=== PATIENT | male | born 1980 | race Caucasian/White ===

== ENCOUNTER 2021-03-12 21:27 | Emergency (ER) | payer OTHER ==
[~2021-03-12] VITALS: Ht 177.8 cm; Wt 75.0 kg
--- NOTE | 2021-03-12 21:46 | PHYS DOC ---
General Adult EDM: Chief Complaint: CHEST PAIN HPI: HPI: ".. I am hurting really bad in my chest ..epigastric.. it may not be my chest .. but my gall bladder.. ".. "that was what it was last time.." Patient is a 40 year old male who presents with above hx and complaints of chest pain and epigastric pain. Patient states he had similar presentation with his previous visit diagnosed as biliary colic from gallbladder. Patient denies any previous cardiac problems. Patient states symptoms started approximate hour to arrival. Patient does give history of eating spicy food and tacos prior to the onset of his chest epigastric pain. Patient does have a history of previous GERD. Patient does smoke. Patient does admit to cocaine use. Patient diagnosed with biliary colic. No family history of gallbladder disease. Review of Systems: Review of Systems: Constitutional: Denies fever or chills Eyes: Denies change in visual acuity HENT: Denies nasal congestion or sore throat Respiratory: Denies cough or shortness of breath Cardiovascular: Complains of chest pain GI: Complains of abdominal pain, nausea. Denies, vomiting, bloody stools or diarrhea : Denies dysuria Musculoskeletal: Denies back pain or joint pain Integument: Denies rash Neurologic: Denies headache, focal weakness or sensory changes Endocrine: Denies polyuria or polydipsia Lymphatic: Denies swollen glands Psychiatric: Denies depression or anxiety Family History: Family History: Noncontributory to presentation. Current Medications: Current Meds: See nursing for home meds Allergies: Allergies: No known drug allergies Physical Exam: PE: Constitutional: IN acute distress, non-toxic appearance. [] HENT: Normocephalic, atraumatic, bilateral external ears normal, oropharynx moist, no oral exudates, nose injected turbinates. Eyes: PERRLA, EOMI, conjunctiva normal, no discharge. [] Neck: Normal range of motion, no tenderness, supple, no stridor. [] Cardiovascular:Heart rate regular rhythm, no murmur [] Lungs & Thorax: Bilateral breath sounds equal apex with scattered wheezes on auscultation [] Abdomen: Bowel sounds normal, soft, epigastric tenderness, no masses, no pulsatile masses. [] Rebound to epigastric. Refused rectal exam at this time. Skin: Warm, dry, no erythema, no rash. [] Back: No tenderness, no CVA tenderness. [] Extremities: No tenderness, no cyanosis, no clubbing, ROM intact, no edema. No cording appreciated Neurologic: Alert and oriented X 3, normal motor function, normal sensory function, no focal deficits noted. [] Psychologic: Affect anxious, judgement normal, mood normal. [] EKG: EKG: My interpretation of EKG shows a sinus rhythm at 73 bpm. No acute morphology. Time of EKG is 2139 hrs. [] Patient refused EKG #2 Radiology/Procedures: Radiology/Procedures: [address] [address] IMAGING REPORT Signed PATIENT: PITA KIRKUNT: [id number] : 1980 LOCATION: ER AGE: 40 SEX: M EXAM STATUS: PRE ER ORD. PHYSICIAN: NAVI HANKINS MD REASON: pain PROCEDURE: ACUTE ABDOMEN SERIES Abdominal Series dated 03/12/2021. No comparison available. Clinical Indication: Abdominal pain. Findings: Single upright PA view the chest shows normal heart and mediastinal contours. The lungs are clear without focal consolidation. Vascular interstitium is within normal limits. Flat and upright views of the abdomen show nondilated gas filled loops of bowel. No air-fluid level on the upright view. Small amount stool in the right colon with mild gaseous distention of the transverse colon and descending colon. No abnormal calcifications are identified. There is no evidence of pneumoperitoneum. Impression chest: No acute radiographic abnormality. Impression abdomen: Non-obstructive bowel gas pattern. Electronically signed by: Prince Abdalla MD (03/13/2021 12:18 AM) [facility] DICTATED AND SIGNED BY: PRINCE ABDALLA MD DATE: 03/13/21 0017 CC: NAVI HANKINS MD; NON,STAFF ~MTH0 [address] [address] IMAGING REPORT Signed PATIENT: PITA KIRKCOUNT: [id number] : 1980 LOCATION: ER AGE: 40 SEX: M EXAM STATUS: REG ER ORD. PHYSICIAN: NAVI HANKINS MD REASON: OMNI 240,30ML PO.OMNI 300,75ML IV.Pain, possible gall stone PROCEDURE: CT ABD PELV W/ORAL&IV CONTRAST CT abdomen pelvis with contrast dated 04/13/2021. No comparison available. Clinical data indication: Pain. TECHNIQUE: Contiguous axial imaging the abdomen pelvis performed after the administration of 75 cc Omnipaque 300. One or more of the following individualized dose reduction techniques were utilized for this examination: 1. Automated exposure control 2. Adjustment of the mA and/or kV according to patient size 3. Use of iterative reconstruction technique FINDINGS: Limited images of lung bases are clear. Heart size within normal limits. No pleural or pericardial effusion. Liver, spleen, pancreas, adrenal glands, gallbladder and kidneys are unremarkable. No hydronephrosis. Partially opacified GI tract normal in caliber and contour. No focal bowel wall thickening. The appendix is normal in caliber. No ascites or lymphadenopathy. Images of pelvis show mildly distended urinary bladder. Prostate gland is normal in size. No free pelvic fluid or pelvic lymphadenopathy. Abdominal aorta is normal in caliber. Bone windows show no acute findings. IMPRESSION: 1. No acute abnormality of abdomen or pelvis. Normal appendix. Electronically signed by: Prince Abdalla MD (03/13/2021 12:47 AM) [facility] DICTATED AND SIGNED BY: PRINCE ABDALLA MD DATE: 03/13/21 0045 CC: NAVI HANKINS MD; NON,STAFF ~MTH0 0 [][facility] IMAGING REPORT Heart Score: C/O Chest Pain: Yes HEART Score for Chest Pain: HEART Score for Chest Pain Response (Comments) Value History Slighlty/Non-Suspicious 0 ECG Normal 0 Age < 45 0 Risk Factors 1 or 2 Risk Factors 1 Troponin < Normal Limit 0 Total 1 Risk Factors: Risk Factors: DM, Current or recent (<one month) smoker, HTN, HLP, family history of CAD, obesity. Risk Scores: Score 0 - 3: 2.5% MACE over next 6 weeks - Discharge Home Score 4 - 6: 20.3% MACE over next 6 weeks - Admit for Clinical Observation Score 7 - 10: 72.7% MACE over next 6 weeks - Early Invasive Strategies Course & Med Decision Making: Course & Med Decision Making Pertinent Labs and Imaging studies reviewed. (See chart for details) After antiacids and milk of mag patient's pain gradually resolved. Patient then demanded discharge home. Refused admission. Exhibit UC[facility] capacity. Begged pt. to reconsider his decision to leave AMA. Advised he could return at any time to complete his evaluation. Pt. refused follow up EKG and Trop. prior to leaving AMA. Impression: 1. Chest Pain 2. Abdomen Pain 3. Polysubstance abuse ( Tobacco, Marijuana and Cocaine) [] Dragon Disclaimer: Hanny Disclaimer: This electronic medical record was generated, in whole or in part, using a voice recognition dictation system. Departure Departure: Referrals: NON,STAFF (PCP) Hanny Disclaimer This chart was dictated in whole or in part using Voice Recognition software in a busy, high-work load, and often noisy Emergency Department environment. It may contain unintended and wholly unrecognized errors or omissions. NAVI HANKINS MD Mar 12, 2021 21:46
[2021-03-12] MEDS: ONDANSETRON PF 4 MG/2 ML VIAL. IVP ONE (22:16)
[2021-03-12] MEDS: KETOROLAC 30 MG/ML VIAL. IVP ONE (22:17)
[2021-03-12] MEDS: MORPHINE SULFATE 10 MG/ML SYRINGE. SQ ONE (22:18)
[2021-03-12] MEDS: FAMOTIDINE 20 MG/2 ML VIAL IVP ONE (22:21)
[2021-03-12] MEDS: MAGNESIUM HYDROXIDE 2,400 MG/30 ML ORAL.SUSP. PO ONE (22:21)
[2021-03-12 22:22] LABS: BASO # 0.1 x10^3/uL (0.0-0.2); BASO % 1 % (0-3); EOS # 0.1 x10^3/uL (0.0-0.7); EOS % 1 % (0-3); HEMATOCRIT 49.3 % (39.0-53.0); HEMOGLOBIN 16.8 g/dL (13.0-17.5); LYMPH # 1.7 x10^3/uL (1.0-4.8); LYMPH % 20 % (24-48); MEAN CORPUSCULAR HEMOGLOBIN 32 pg (25-35); MEAN CORPUSCULAR HGB CONC 34 g/dL (31-37); MEAN CORPUSCULAR VOLUME 93 fL (79-100); MONO # 0.5 x10^3/uL (0.0-1.1); MONO % 6 % (0-9); NEUT # 6.1 x10^3uL (1.8-7.7); NEUT % 73 % (31-73); PLATELET COUNT 156 x10^3/uL (140-400); RED BLOOD COUNT 5.31 x10^6/uL (4.30-5.70); RED CELL DISTRIBUTION WIDTH 13.9 % (11.5-14.5); WHITE BLOOD COUNT 8.4 x10^3/uL (4.0-11.0)
[2021-03-12 22:30] LABS: CALCIUM 8.7 mg/dL (8.5-10.1); CREATININE 0.9 mg/dL (0.7-1.3); GFR 93.5; POTASSIUM 3.6 mmol/L (3.5-5.1)
[2021-03-12 22:37] LABS: ALBUMIN 3.6 g/dL (3.4-5.0); DIRECT BILIRUBIN 0.1 mg/dL (0.0-0.2); TOTAL BILIRUBIN 0.3 mg/dL (0.2-1.0)
[2021-03-12 22:54] VITALS: BP 147/106
[2021-03-12] MEDS: IV RINGERS SOLUTION,LACTATED 1,000 ML IV SCH (23:00)
[2021-03-12] MEDS ORDERED: IOHEXOL 240 MG/ML 50ML VIAL. ONE (23:08)
[2021-03-12] MEDS ORDERED: CONTRAST GIVEN. MC PRN (23:15)
[2021-03-13 00:14] LABS: AMPHETAMINE/METHAMPHETAMINE NEG (NEG); BARBITURATES NEG (NEG); BENZODIAZEPINES NEG (NEG); CANNABINOIDS POS (NEG); COCAINE POS (NEG); METHADONE NEG (NEG); OPIATES POS (NEG); PHENCYCLIDINE NEG (NEG)
[2021-03-13] MEDS: IOHEXOL 300 MG/ML 75 ML VIAL. IV ONE (00:14)
--- NOTE | 2021-03-13 00:20 | RAD ---
Abdominal Series dated 03/12/2021. No comparison available. Clinical Indication: Abdominal pain. Findings: Single upright PA view the chest shows normal heart and mediastinal contours. The lungs are clear wit hout focal consolidation. Vascular interstitium is within normal limits. Flat and upright views of the abdomen show nondilated gas filled loops of bowel. No air-fluid level o n the upright view. Small amount stool in the right colon with mild gaseous distention of the transve rse colon and descending colon. No abnormal calcifications are identified. There is no evidence of pn eumoperitoneum. Impression chest: No acute radiographic abnormality. Impression abdomen: Non-obstructive bowel gas pattern. Electronically signed by: Prince Abdalla MD (03/13/2021 12:18 AM) [facility]
--- NOTE | 2021-03-13 00:49 | RAD ---
CT abdomen pelvis with contrast dated 04/13/2021. No comparison available. Clinical data indication: Pain. TECHNIQUE: Contiguous axial imaging the abdomen pelvis performed after the administration of 75 cc Omnipaque 300 . One or more of the following individualized dose reduction techniques were utilized for this examinat ion: 1. Automated exposure control 2. Adjustment of the mA and/or kV according to patient size 3. Use of iterative reconstruction technique FINDINGS: Limited images of lung bases are clear. Heart size within normal limits. No pleural or pericardial ef fusion. Liver, spleen, pancreas, adrenal glands, gallbladder and kidneys are unremarkable. No hydronephrosis. Partially opacified GI tract normal in caliber and contour. No focal bowel wall thickening. The appen dimple is normal in caliber. No ascites or lymphadenopathy. Images of pelvis show mildly distended urinary bladder. Prostate gland is normal in size. No free pel anette fluid or pelvic lymphadenopathy. Abdominal aorta is normal in caliber. Bone windows show no acute findings. IMPRESSION: 1. No acute abnormality of abdomen or pelvis. Normal appendix. Electronically signed by: Prince Abdalla MD (03/13/2021 12:47 AM) [facility]
[2021-03-13 01:22] LABS: BACTERIA,URINE 0 /HPF (0-FEW); BILIRUBIN,URINE NEG (NEG); CLARITY,URINE CLEAR; COLOR,URINE YELLOW; GLUCOSE,URINE NEG (NEG); NITRITE,URINE NEG (NEG); RBC,URINE 0 /HPF (0-2); UROBILINOGEN,URINE 0.2 mg/dL (0.2 mg/dL); WBC,URINE 0 /HPF (0-4)
--- NOTE | 2021-03-13 04:26 | EKG ---
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
== END 2021-03-13 02:00 | disposition left against medical advice (07) ==
LOC: ER 21:27
DX: R07.89 Other chest pain (principal); R10.13 Epigastric pain; F12.10 Cannabis abuse, uncomplicated; F14.10 Cocaine abuse, uncomplicated
CPT/HCPCS: 36415; 74022; 74177; 80048; 80076; 80307; 81001; 82150; 82550; 83690; 84484; 85025; 85610; 85730; 93005; 96361; 96372; 96374; 96375; 99285; J1885; J2270; J2405; J3490; J7120; Q9967

== ENCOUNTER 2021-03-21 19:21 | Inpatient (IN) | payer OTHER ==
[~2021-03-21] VITALS: Ht 180.3 cm; Wt 74.7 kg
--- NOTE | 2021-03-21 19:30 | PHYS DOC ---
Past History Past Medical History: GERD Past Medical History Hx. of biliary colic Past Surgical History: Other Smoking: Cigarettes Alcohol Use: None General Adult EDM: Chief Complaint: ABDOMINAL PAIN HPI: HPI: "..I hurting really bad in my gut..my whole abdomen hurts... It seems centered here..( pt. points to Rt upper and epigastric area).."..." I ve had some reflux stuff in the past... And when I had this pain before they told me I had gallbladder problems..but tonight it is really killing me...".." I was here before.. earlier this month..I thought it was chest pain.. it got better and I never completed the work up in the ED.. I left against medical advice.." Patient is a 40 year old male who presents with above hx and complaints of generalized abdomen pain. Patient does localize pain to epigastric and right upper quadrant. Patient states the pain is 10 out of 10 and radiates to his back,. There is some radiation to mid sternal area. . Patient denies any intake of bad food. Patient reports he has had previous evaluations in the emergency departments for this pain. The last eval was 03/12/21,but left AMA. Has been evaluated other emergency departments and told it was biliary colic.. Patient denies any history of cardiac problems. Patient gives history of previous exacerbation with eating spicy food, tacos, and high-fat foods. Patient had had a history of intermittent episodes of GERD in the past. Patient denies history of pancreatitis. Patient does smoke tobacco. Patient does admit to recreational marijuana and cocaine use. There is no family history of gallbladder disease. Patient denies any trauma. Patient denies any alcohol use. Patient denies any tarry stools. Patient denies any recent trauma or specific ill contacts. No recent travel outside the [place] area. No history of immunosuppression. Pt.follows with Dr. Nnamdi Vu at [facility]. Review of Systems: Review of Systems: Constitutional: Denies fever or chills Eyes: Denies change in visual acuity HENT: Denies nasal congestion or sore throat Respiratory: Denies cough or shortness of breath Cardiovascular: Denies chest pain or edema GI: Denies abdominal pain, nausea, vomiting, bloody stools or diarrhea : Denies dysuria Musculoskeletal: Denies back pain or joint pain Integument: Denies rash Neurologic: Denies headache, focal weakness or sensory changes Endocrine: Denies polyuria or polydipsia Lymphatic: Denies swollen glands Psychiatric: Denies depression or anxiety Family History: Family History: Noncontributory to presentation. No history of gallbladder disease or stones Current Medications: Current Meds: See nursing for home meds Allergies: Allergies: Allergies Coded Allergies Type Severity Reaction Last Updated Verified No Known Drug Allergies 03/12/21 No Physical Exam: PE: Constitutional: Well developed, well nourished, in acute distress, non-toxic appearance. [] HENT: Normocephalic, atraumatic, bilateral external ears normal, oropharynx moist, no oral exudates, nose normal. [] Eyes: PERRLA, EOMI, conjunctiva normal, no discharge. [] Neck: Normal range of motion, no tenderness, supple, no stridor. [] Cardiovascular: Tachycardia heart rate regular rhythm, no murmur []. Patient's bedside monitor shows a sinus tachycardia. No obvious PVCs or STEMI. Lungs & Thorax: Bilateral breath sounds equal apex with scattered wheezes on auscultation [] Abdomen: Bowel sounds decreased, soft, marked epigastric tenderness, no masses, no pulsatile masses. Rebound to epigastric and right upper quadrant. Skin: Warm, diaphoretic, no erythema, no rash. [] Back: No tenderness, no CVA tenderness. [] Extremities: No tenderness, no cyanosis, no clubbing, ROM intact, no edema. No true psoas sign. No cording appreciated. Neurologic: Alert and oriented X 3, moves all extremities on request, does have distal sensory,, no focal deficits noted. [] Psychologic: Affect very anxious, judgement normal, mood normal. [] EKG: EKG: My interpretation of EKG shows a sinus rhythm at 94 bpm. No acute morphology time of this EKG is 2008 hrs. [] Radiology/Procedures: Radiology/Procedures: [[address] [address] IMAGING REPORT Signed PATIENT: PITA KIRK JACCOUNT: [id number] : 1980 LOCATION: ER AGE: 40 SEX: M EXAM STATUS: REG ER ORD. PHYSICIAN: NAVI HANKINS MD REASON: pain PROCEDURE: ACUTE ABDOMEN SERIES EXAM: Frontal view of the chest, AP views of the abdomen in upright and supine positions. CLINICAL INDICATION: Reason: pain / Spl. Instructions: / History: COMPARISON: 03/12/2021 FINDINGS and IMPRESSION: The heart is not enlarged. Mediastinal and hilar contours are normal. Linear patchy bibasilar opacities, new compared to 03/12/2021, possibly atelectasis or early/developing consolidative process. No pleural effusion or pneumothorax. No abnormal small or large bowel dilatation. Moderate colonic stool content. No abnormal soft tissue mass effect. No suspicious calcifications are seen. No free intraperitoneal gas. Electronically signed by: Miguel Donato MD (03/21/2021 8:39 PM) [facility] DICTATED AND SIGNED BY: MIGUEL DONATO MD DATE: 03/21/212037 CC: NAVI HANKINS MD; PCP,UNKNOWN ~MTH0 0 ] IMAGING REPORT Signed PATIENT: PITA KIRK JACCOUNT: [id number] : 1980 LOCATION: ER AGE: 40 SEX: M EXAM STATUS: REG ER ORD. PHYSICIAN: NAVI HANKINS MD REASON: pain, OMNI 300, 75ml & OMNI 240, 30ml PROCEDURE: CT ABD PELV W/ORAL&IV CONTRAST Exam: CT of abdomen and pelvis with contrast INDICATION: Pain TECHNIQUE: Sequential axial images through the abdomen and pelvis obtained following the administration of 75 mL of Omni 300 IV contrast. Sagittal and coronal reformatted images were reconstructed from the axial data and reviewed. Exposure: One or more of the following in the visualized dose reduction techniques were utilized for this examination: 1. Automated exposure control 2. Adjustment of the MA and/or KV according to patient size 3. Use of iterative of reconstructive technique Comparisons: 03/12/2021 FINDINGS: Heart size is normal. No pericardial effusion. Strandy opacities at dependent portion lungs likely representing atelectasis. No pleural effusion. Liver, spleen, gallbladder and adrenals are unremarkable. There is inflammatory changes surrounding the pancreatic head extending into the mesentery. No peripancreatic fluid collection. Kidneys demonstrate symmetric enhancement. No perinephric inflammation or hydronephrosis. No renal or ureteral calculi are identified. Bladder is partially distended and appears thin-walled. Prostate is not enlarged. Large and small bowel are unremarkable. Appendix is normal. No free intra- abdominal air or fluid. No obstruction. Abdominal aorta has a normal course and caliber. Abdominal vasculature is patent. No enlarged intra-abdominal lymph nodes are identified. No suspicious osseous lesions or acute fractures. IMPRESSION: Inflammatory changes surrounding the pancreatic head and involving the duodenum. Findings are favored represent pancreatitis. Correlate with lipase. Enteritis involving the duodenum is also possible. Electronically signed by: Manuel Gupta MD (03/21/2021 10:07 PM) [facility] DICTATED AND SIGNED BY: MANUEL GUPTA MD DATE: 03/21/212202 CC: NAVI HANKINS MD; PCP,UNKNOWN ~MTH0 0 Heart Score: C/O Chest Pain: Yes HEART Score for Chest Pain: HEART Score for Chest Pain Response (Comments) Value History Slighlty/Non-Suspicious 0 ECG Normal 0 Age < 45 0 Risk Factors 1 or 2 Risk Factors 1 Troponin < Normal Limit 0 Total 1 Risk Factors: Risk Factors: DM, Current or recent (<one month) smoker, HTN, HLP, family history of CAD, obesity. Risk Scores: Score 0 - 3: 2.5% MACE over next 6 weeks - Discharge Home Score 4 - 6: 20.3% MACE over next 6 weeks - Admit for Clinical Observation Score 7 - 10: 72.7% MACE over next 6 weeks - Early Invasive Strategies Course & Med Decision Making: Course & Med Decision Making Pertinent Labs and Imaging studies reviewed. (See chart for details) Discussed presentation, testing and tx. plan with Dr. Mcnally- advised to admit to Tele- NPO status, continue IV hydration and pain meds. No US at this time. Impression: 1. Acute pancreatitis 2. Elevated Lipase 7,757 3. UDS- + Cocaine 4. Mild Hypokalemia 3.4 5. Dehydration 6. Tobacco use 7. Hypertension [] Dragon Disclaimer: Dragon Disclaimer: This electronic medical record was generated, in whole or in part, using a voice recognition dictation system. Departure Departure: Referrals: PCP,UNKNOWN (PCP) Dragon Disclaimer This chart was dictated in whole or in part using Voice Recognition software in a busy, high-work load, and often noisy Emergency Department environment. It may contain unintended and wholly unrecognized errors or omissions. Dragon Disclaimer This chart was dictated in whole or in part using Voice Recognition software in a busy, high-work load, and often noisy Emergency Department environment. It may contain unintended and wholly unrecognized errors or omissions. NAVI HANKINS MD Mar 21, 2021 19:30
[2021-03-21] MEDS ORDERED: IOHEXOL 240 MG/ML 50ML VIAL. PO ONE (19:45)
[2021-03-21] MEDS ORDERED: IOHEXOL 300 MG/ML 75 ML VIAL. IV ONE (19:45)
[2021-03-21] MEDS ORDERED: IV RINGERS SOLUTION,LACTATED 1,000 ML IV SCH (19:45)
[2021-03-21] MEDS ORDERED: CONTRAST GIVEN. MC PRN (20:00)
[2021-03-21] MEDS ORDERED: KETOROLAC 30 MG/ML VIAL. IVP ONE (20:15)
[2021-03-21] MEDS ORDERED: ONDANSETRON PF 4 MG/2 ML VIAL. IVP ONE (20:15)
[2021-03-21] MEDS ORDERED: FAMOTIDINE 20 MG/2 ML VIAL IVP ONE (20:15)
[2021-03-21 20:31] LABS: BASO % 0 % (0-3); EOS % 0 % (0-3); HEMATOCRIT 49.7 % (39.0-53.0); HEMOGLOBIN 16.8 g/dL (13.0-17.5); LYMPH # 0.9 x10^3/uL (1.0-4.8); LYMPH % 9 % (24-48); MEAN CORPUSCULAR HEMOGLOBIN 31 pg (25-35); MEAN CORPUSCULAR HGB CONC 34 g/dL (31-37); MEAN CORPUSCULAR VOLUME 93 fL (79-100); MONO # 0.4 x10^3/uL (0.0-1.1); MONO % 4 % (0-9); NEUT # 8.5 x10^3uL (1.8-7.7); NEUT % 86 % (31-73); PLATELET COUNT 150 x10^3/uL (140-400); RED BLOOD COUNT 5.36 x10^6/uL (4.30-5.70); RED CELL DISTRIBUTION WIDTH 13.7 % (11.5-14.5); WHITE BLOOD COUNT 9.8 x10^3/uL (4.0-11.0)
[2021-03-21 20:37] LABS: CALCIUM 8.5 mg/dL (8.5-10.1); CREATININE 0.8 mg/dL (0.7-1.3); GFR 107.1; POTASSIUM 3.4 mmol/L (3.5-5.1)
--- NOTE | 2021-03-21 20:41 | RAD ---
EXAM: Frontal view of the chest, AP views of the abdomen in upright and supine positions. CLINICAL INDICATION: Reason: pain / Spl. Instructions: / History: COMPARISON: 03/12/2021 FINDINGS and IMPRESSION: The heart is not enlarged. Mediastinal and hilar contours are normal. Linear patchy bibasilar opaciti es, new compared to 03/12/2021, possibly atelectasis or early/developing consolidative process. No ple ural effusion or pneumothorax. No abnormal small or large bowel dilatation. Moderate colonic stool content. No abnormal soft tissu e mass effect. No suspicious calcifications are seen. No free intraperitoneal gas. Electronically signed by: Miguel Ding MD (03/21/2021 8:39 PM) [facility]ANCY
[2021-03-21 20:44] LABS: ALBUMIN 3.6 g/dL (3.4-5.0); DIRECT BILIRUBIN 0.2 mg/dL (0.0-0.2); TOTAL BILIRUBIN 0.6 mg/dL (0.2-1.0); TOTAL PROTEIN 6.7 g/dL (6.4-8.2)
[2021-03-21 20:57] LABS: AMPHETAMINE/METHAMPHETAMINE NEG (NEG); BARBITURATES NEG (NEG); BENZODIAZEPINES NEG (NEG); CANNABINOIDS NEG (NEG); COCAINE POS (NEG); METHADONE NEG (NEG); OPIATES NEG (NEG); PHENCYCLIDINE NEG (NEG)
--- NOTE | 2021-03-21 21:01 | EKG ---
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
[2021-03-21 21:04] LABS: BILIRUBIN,URINE NEG (NEG); CLARITY,URINE CLEAR; COLOR,URINE YELLOW; GLUCOSE,URINE NEG (NEG)
[2021-03-21 21:05] LABS: BACTERIA,URINE 0 /HPF (0-FEW); NITRITE,URINE NEG (NEG); RBC,URINE 0 /HPF (0-2); UROBILINOGEN,URINE 0.2 mg/dL (0.2 mg/dL); WBC,URINE OCC /HPF (0-4)
[2021-03-21] MEDS ORDERED: MORPHINE SULFATE 10 MG/ML SYRINGE. SQ ONE ×2 (21:15→22:45)
--- NOTE | 2021-03-21 22:09 | RAD ---
Exam: CT of abdomen and pelvis with contrast INDICATION: Pain TECHNIQUE: Sequential axial images through the abdomen and pelvis obtained following the administrati on of 75 mL of Omni 300 IV contrast. Sagittal and coronal reformatted images were reconstructed from the axial data and reviewed. Exposure: One or more of the following in the visualized dose reduction techniques were utilized for this examination: 1. Automated exposure control 2. Adjustment of the MA and/or KV according to patient size 3. Use of iterative of reconstructive technique Comparisons: 03/12/2021 FINDINGS: Heart size is normal. No pericardial effusion. Strandy opacities at dependent portion lungs likely re presenting atelectasis. No pleural effusion. Liver, spleen, gallbladder and adrenals are unremarkable. There is inflammatory changes surrounding t he pancreatic head extending into the mesentery. No peripancreatic fluid collection. Kidneys demonstrate symmetric enhancement. No perinephric inflammation or hydronephrosis. No renal or ureteral calculi are identified. Bladder is partially distended and appears thin-walled. Prostate is not enlarged. Large and small bowel are unremarkable. Appendix is normal. No free intra-abdominal air or fluid. No obstruction. Abdominal aorta has a normal course and caliber. Abdominal vasculature is patent. No enlarged intra-abdominal lymph nodes are identified. No suspicious osseous lesions or acute fractures. IMPRESSION: Inflammatory changes surrounding the pancreatic head and involving the duodenum. Findings are favored represent pancreatitis. Correlate with lipase. Enteritis involving the duodenum is also possible. Electronically signed by: Manuel Gregorio MD (03/21/2021 10:07 PM) [facility]
[2021-03-21] MEDS ORDERED: cefTRIAXone SODIUM 1 GM VIAL ONE (22:42)
[2021-03-21] MEDS ORDERED: NICOTINE 21MG PATCH. TD ONE ×2 (22:42→22:45)
[2021-03-21] MEDS ORDERED: IV NORMAL SALINE 50ML 50 ML ONE (22:42)
[2021-03-21] MEDS ORDERED: ACETAMINOPHEN 325 MG TABLET PO PRN (22:45)
[2021-03-21] MEDS ORDERED: ONDANSETRON PF 4 MG/2 ML VIAL. IVP PRN (22:45)
--- NOTE | 2021-03-21 23:57 | NUR ---
The patient, PITA KIRK, 40 y/o, M admitted by MARIS HSU MD, was given written information regarding hospital policies, unit procedures and contact persons. Valuables were checked and logged. Call light in place.
[2021-03-22 00:15] VITALS: BP 140/92
[2021-03-22] MEDS: IV RINGERS SOLUTION,LACTATED 1,000 ML IV SCH ×5 (00:58→20:53)
[2021-03-22] MEDS: MORPHINE SULFATE 10 MG/ML SYRINGE. SQ PRN ×2 (03:28→11:22)
[2021-03-22] MEDS ORDERED: IPRATRPIUM/ALBUTEROL 0.5/2.5MG 3 ML NEBU. ONE (04:57)
[2021-03-22] MEDS ORDERED: PANT40TA6 PO (05:18)
[2021-03-22] MEDS ORDERED: IBUP800T19 PO (05:18)
[2021-03-22] MEDS: IPRATRPIUM/ALBUTEROL 0.5/2.5MG 3 ML NEBU. NEB SCH ×4 (05:22→20:00)
[2021-03-22 06:07] VITALS: BP 142/90
[2021-03-22 07:15] LABS: BASO % 0 % (0-3); EOS # 0.1 x10^3/uL (0.0-0.7); EOS % 1 % (0-3); HEMATOCRIT 45.6 % (39.0-53.0); HEMOGLOBIN 15.4 g/dL (13.0-17.5); LYMPH # 0.8 x10^3/uL (1.0-4.8); LYMPH % 10 % (24-48); MEAN CORPUSCULAR HEMOGLOBIN 32 pg (25-35); MEAN CORPUSCULAR HGB CONC 34 g/dL (31-37); MEAN CORPUSCULAR VOLUME 94 fL (79-100); MONO # 0.3 x10^3/uL (0.0-1.1); MONO % 4 % (0-9); NEUT # 6.9 x10^3uL (1.8-7.7); NEUT % 85 % (31-73); PLATELET COUNT 127 x10^3/uL (140-400); RED BLOOD COUNT 4.87 x10^6/uL (4.30-5.70); RED CELL DISTRIBUTION WIDTH 13.9 % (11.5-14.5); WHITE BLOOD COUNT 8.1 x10^3/uL (4.0-11.0)
[2021-03-22 07:17] LABS: CALCIUM 8.1 mg/dL (8.5-10.1); CREATININE 0.8 mg/dL (0.7-1.3); GFR 107.1; POTASSIUM 3.3 mmol/L (3.5-5.1)
--- NOTE | 2021-03-22 07:27 | NUR ---
Yefri Mcnally. This patient was admitted through ER for Acute pancreatitis. ER Doctor ordered patient on breathing txs Duoneb QID. Avg. Spo2 on RA is 96%. Pt. has no Respiratory history except sleep apnea. Pt does not do Respiratory txs or oxygen at home. Pt did not require a Respiratory tx in ED. CXR of lungs was not required in ED. ER Doctor noted Pt. had no complaint of cough or SOA and had clear breath sounds. Pt. states he has no trouble with his breathing. Request this patients breathing txs be discontinued. Thank you, Respiratory therapy
[2021-03-22] MEDS ORDERED: NICOTINE 21MG PATCH. TD ONE (09:00)
[2021-03-22] MEDS ORDERED: MORPHINE SULFATE 4 MG/ML DISP.SYRIN. IV PRN (09:00)
--- NOTE | 2021-03-22 09:05 | HP ---
ADMIT DATE: 03/22/2021 ATTENDING PHYSICIAN: Dr. Mcnally. CHIEF COMPLAINT: Abdominal pain. HISTORY OF PRESENT ILLNESS: The patient is a 40-year-old gentleman who drinks on a regular basis. He drinks every day and admits to more to me that he did to the ER physician. He presented with new onset of abdominal pain and nausea. Workup in the ED showed evidence of pancreatitis. CT confirmed this, with peripancreatic edema. Lipase level was elevated. He was admitted for inpatient care, n.p.o., IV hydration and pain and nausea control. PAST MEDICAL HISTORY: Significant for gastroesophageal reflux disease. ALLERGIES: He has no known drug allergies. MEDICATIONS: He takes intermittent Protonix. SOCIAL HISTORY: He is a smoker, 1-2 packs of cigarettes daily. He drinks alcohol, he states a 6-pack at night, most likelihood he drinks more. FAMILY HISTORY: Mom and dad are both alive at age 70 and 72, in fairly good health. He is under a lot of stress, going through a divorce right now. 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 He has had 1 DUI in the past. REVIEW OF SYSTEMS: Significant for the increased stress, localized pain. No recent COVID exposure. All other systems reviewed and turned to be negative. PHYSICAL EXAMINATION: GENERAL: When I saw him, this is a pleasant male who is alert and sober. INITIAL VITAL SIGNS: Show a blood pressure of 142/90, temperature 96.2 degrees Fahrenheit, pulse is regular at 90, oxygen saturation 94% on room air. HEENT: Head is without trauma. Pupils are reactive. Sclerae are nonicteric. Oropharynx is clear. NECK: Supple, no bruits identified. LUNGS: Clear to auscultation. CARDIOVASCULAR: Regular heart tones. No gallop. ABDOMEN: Soft. Minimal guarding. No rebound tenderness. EXTREMITIES: Without edema. NEUROLOGIC: Function focally intact. Affect a bit off and flat. SKIN: Warm and dry. PERTINENT LABORATORY STUDIES: Admission hemoglobin was 16.8 g/dL with a white count of 9800. The lipase level was 7757. Electrolytes within normal range. Potassium 3.4 mEq, creatinine 0.8 mg/dL. Cardiac enzymes are negative for coronary ischemia. Imaging show evidence of acute pancreatitis. No phlegmon identified. ASSESSMENT: 1. A 40-year-old gentleman with alcoholic pancreatitis. 2. Underlying depression with anxiety. 3. Chronic alcoholism. 4. Mild chronic obstructive pulmonary disease. PLAN: 1. Admit to the inpatient unit. 2. IV hydration. 3. N.p.o. 4. P.r.n. pain and nausea meds. 5. We will advance diet once symptoms improve. ALESSANDRO/JUAN DR: ALESSANDRO/joel TID: [id number]
[2021-03-22] MEDS: SUCRALFATE 1 GM TABLET. PO SCH ×4 (09:14→21:26)
[2021-03-22] MEDS: FAMOTIDINE 20 MG/2 ML VIAL IVP SCH ×2 (09:14→21:26)
[2021-03-22] MEDS: MAGNESIUM HYDROXIDE 2,400 MG/30 ML ORAL.SUSP. PO SCH (09:14)
[2021-03-22 10:30] VITALS: BP 150/95
[2021-03-22] MEDS ORDERED: MORPHINE SULFATE 10 MG/ML SYRINGE. IV PRN (11:30)
[2021-03-22] MEDS: MORPHINE SULFATE 10 MG/ML SYRINGE. IM PRN ×3 (13:41→22:12)
[2021-03-22 14:28] VITALS: BP 141/94
[2021-03-22 19:21] VITALS: BP 137/89
--- NOTE | 2021-03-22 20:00 | NUR ---
pt does not want a tx at this time. ag
[2021-03-22] MEDS ORDERED: NICOTINE 21MG PATCH. TD PRN (20:30)
[2021-03-22 23:20] VITALS: BP 131/84
[2021-03-23] MEDS: IV RINGERS SOLUTION,LACTATED 1,000 ML IV SCH ×3 (01:41→08:57)
[2021-03-23] MEDS: MORPHINE SULFATE 10 MG/ML SYRINGE. IM PRN ×2 (05:05→10:02)
--- NOTE | 2021-03-23 05:14 | NUR ---
Pt requested to walk around the unit about 2100. Pt was monitored by this nurse during walk d/t use of morphine for pain control. Pt denied dizziness or difficulty during walk. Pt slept most of night soundly. Will continue to monitor.
[2021-03-23 05:20] VITALS: BP 137/88
[2021-03-23] MEDS: IPRATRPIUM/ALBUTEROL 0.5/2.5MG 3 ML NEBU. NEB SCH (05:55)
--- NOTE | 2021-03-23 05:55 | NUR ---
Pt says to let him sleep at 5am tx.
[2021-03-23] MEDS: SUCRALFATE 1 GM TABLET. PO SCH (08:45)
[2021-03-23] MEDS: MAGNESIUM HYDROXIDE 2,400 MG/30 ML ORAL.SUSP. PO SCH (08:45)
[2021-03-23] MEDS: FAMOTIDINE 20 MG/2 ML VIAL IVP SCH (08:45)
[2021-03-23] MEDS ORDERED: OXYC1TAB22 PO (09:35)
--- NOTE | 2021-03-23 10:07 | DS ---
DATE OF DISCHARGE: 03/23/2021 ATTENDING PHYSICIAN: Dr. Mcnally. FINAL DISCHARGE DIAGNOSES: 1. Alcoholic pancreatitis. 2. Chronic alcoholism. 3. Underlying depression with anxiety. 4. Mild chronic obstructive pulmonary disease. HISTORY AND PHYSICAL: The patient is a 40-year-old gentleman who drinks on a regular basis. He presented with abdominal pain and nausea, CT evidence of pancreatitis. PHYSICAL EXAMINATION: Please see the dictated note. PERTINENT LABORATORY AND X-RAY STUDIES: Hemoglobin is 15.4 g/dL with a white count of 8100. Chemistry panel, electrolytes within normal range. Sodium was 136, potassium 3.4 mEq. Lipase on admission was 7700. CT of the abdomen showed evidence of inflammatory changes surrounding the pancreatic head and duodenum. No obstruction identified. COURSE IN HOSPITAL: The patient was admitted. He was kept n.p.o., IV hydration, pain and nausea control. He did better. He preferred the intramuscular shots evidently. On the third hospital day, his vital signs were stable. Abdomen was benign. It was noted there was no rebound or guarding. He was ready for discharge. Therefore, I sent him home with strong encouragement to avoid further alcohol use. I called in a script for Percocet 10/325 one p.o. q. 6 hours. He was discharged from our hospital in stable condition with explicit drug and followup care. Total discharge time spent was 38 minutes. ALESSANDRO/JAY JAY OLIVERA: ALESSANDRO/joel TID: [id number]
[2021-03-23 10:25] VITALS: BP 130/86
--- NOTE | 2021-03-23 11:45 | NUR ---
HOME MEDICATIONS RETURNED BACK TO THE PATIENT FROM PHARMACY.
--- NOTE | 2021-03-23 12:04 | NUR ---
PATIENT IS DISCHARGED HOME, DISCHARGED INSTRUCTION REVIEWED, PATIENT VERBALIZED UNDERSTANDING. PATIENT LEFT UNIT VIA AMBUL ACCOMP BY SELF. PATIENT IS TAKEN HOME VIA CAB, SELF PAY FOR TAXI.
== END 2021-03-23 12:05 | disposition home or self-care (01) | DRG 640 ==
LOC: ER 19:21 → 1 SOUTH 22:40
PROVIDERS: ADMIT Hospitalist; ATTEND Hospitalist
DX: E87.6 Hypokalemia (principal); K85.20 Alcohol induced acute pancreatitis without necrosis or infection; F17.210 Nicotine dependence, cigarettes, uncomplicated; K21.9 Gastro-esophageal reflux disease without esophagitis; E86.0 Dehydration; I10 Essential (primary) hypertension; F41.8 Other specified anxiety disorders; F10.20 Alcohol dependence, uncomplicated; J44.9 Chronic obstructive pulmonary disease, unspecified; F12.90 Cannabis use, unspecified, uncomplicated; F14.90 Cocaine use, unspecified, uncomplicated; Z20.822 Contact with and (suspected) exposure to COVID-19
CPT/HCPCS: 36415; 74022; 74177; 80048; 80076; 80307; 81001; 82550; 83690; 84484; 85025; 85610; 85730; 87426; 93005; 94640; 96361; 96365; 96372; 96375; J0696; J1885; J2270; J2405; J3490; J7120; Q9966; Q9967; U0003; 99285-25